=== PATIENT | female | born 2000 | race Caucasian/White ===

== ENCOUNTER 2019-01-01 09:34 | Emergency (ER) | payer BC ==
[~2019-01-01] VITALS: Ht 154.9 cm; Wt 57.7 kg
[2019-01-01] MEDS ORDERED: STELARA90 MG/ML IJ (09:45)
[2019-01-01] MEDS ORDERED: LEXAPRO 5MG5 MG PO (09:46)
[2019-01-01] MEDS ORDERED: PRIL40 PO (09:47)
[2019-01-01] MEDS ORDERED: ABILIFY 10MG TA10 MG PO (09:47)
[2019-01-01 10:28] LABS: HEMOGLOBIN 12.3 g/dl (12.0-15.0); MEAN CELL VOLUME 84 fl (80.0-95.0); MEAN CORPUSCULAR HEMOGLOBIN 28 pg (26.0-32.0); MEAN CORPUSCULAR HGB CONC 33 g/dl (33.0-37.0); MEAN PLATELET VOLUME 10.6 fl (7.4-10.4); PLATELET COUNT 151 K/mm3 (130-400); RED BLOOD COUNT 4.38 M/mm3 (4.10-5.30); REDCELL DISTRIBUTION WIDTH-CV 13.5 % (11.5-14.5)
[2019-01-01 10:31] LABS: COLLECTION METHOD CLEAN CATCH
[2019-01-01 10:34] LABS: HEMATOCRIT 36.9 % (35.0-45.0)
[2019-01-01 10:37] LABS: MUCOUS Present /lpf; PH 5 (5-8); SQUAMOUS EPITHELIAL 0-2 /hpf; URINE APPEARANCE Hazy; URINE BACTERIA None Seen /hpf; URINE BILIRUBIN Negative (NEGATIVE); URINE BLOOD Negative (NEGATIVE); URINE COLOR Yellow; URINE GLUCOSE Negative (NEGATIVE); URINE KETONE 1+ (NEGATIVE); URINE LEUKOCYTE ESTERASE Negative (NEGATIVE); URINE NITRATE Negative (NEGATIVE); URINE PROTEIN(semi-quant) 1+ (NEGATIVE); URINE RBC 0-2 /hpf; URINE UROBILINOGEN Negative (NEGATIVE)
[2019-01-01 10:39] LABS: STREP SCREEN NEGATIVE
[2019-01-01 10:53] LABS: BILIRUBIN,TOTAL 0.4 mg/dL (0.0-1.0); CALCIUM 8.8 mg/dL (8.4-10.2); POTASSIUM 3.9 mmol/L (3.4-5.0); TOTAL PROTEIN 7.8 gm/dL (6.4-8.2)
[2019-01-01 11:02] LABS: BAND 45 % (0-10); BASOPHIL 1 % (0-2); NEUTROPHILS 11 % (42.0-75.2); PLATELET ESTIMATE NORMAL (NORMAL)
[2019-01-01 11:03] LABS: LYMPHOCYTE 31 % (20.0-51.0)
[2019-01-01 11:04] LABS: MONOSCREEN NEGATIVE
[2019-01-01 13:01] LABS: GLUCOSE,CSF 46 mg/dL (40-70); TOTAL PROTEIN,CSF 32 mg/dL (15-45)
[2019-01-01 13:54] LABS: CSF APPEARANCE CLEAR; CSF COLOR COLORLESS; CSF POLYMORPHONUCLEAR 0 % (0-6); CSF RBC 60 /mm3 (0-0)
[2019-01-01 13:55] LABS: CSF APPEARANCE CLEA; CSF COLOR BROWN; CSF MONONUCLEAR 100 % (70-100); CSF RBC 3 /mm3 (0-0)
[2019-01-01 13:56] LABS: CSF MONONUCLEAR 100 % (70-100); CSF POLYMORPHONUCLEAR 0 % (0-6)
[2019-01-01] MEDS ORDERED: LEVAQUIN 5500 MG/TA1 PO ×3 (14:11→14:40)
[2019-01-01 14:37] VITALS: BP 119/65; PULSE 75; TEMP 98.5
== END 2019-01-01 14:37 | disposition home or self-care (01) ==
LOC: COL.ER 09:34
PROVIDERS: Emergency Medicine
DX: R50.9 Fever, unspecified (principal); K50.90 Crohn's disease, unspecified, without complications
CPT/HCPCS: J1885; J2405; J7030